=== PATIENT | male | born 1990 | race Two or more races ===

== ENCOUNTER 2020-05-26 09:23 | Emergency (ER) | payer SELFPAY ==
[~2020-05-26] VITALS: Ht 172.7 cm; Wt 106.0 kg
[2020-05-26] MEDS ORDERED: IV NORMAL SALINE 1000ML BAG 1,000 ML IV ONE (10:00)
[2020-05-26] MEDS ORDERED: ONDANSETRON PF 4 MG/2 ML VIAL. IVP ONE (10:00)
[2020-05-26] MEDS ORDERED: KETOROLAC 30 MG/ML VIAL. IVP ONE (10:00)
--- NOTE | 2020-05-26 10:03 | PHYS DOC ---
Past Medical History Past Medical History: No Pertinent History Past Surgical History: No Surgical History Smoking Status: Never Smoker Alcohol Use: Occasionally General Adult EDM: Chief Complaint: ABDOMINAL PAIN HPI: HPI: Patient is a 29 year old male who presented to ER for evaluation of 2-week history of right-sided abdominal pain off and on. The pain become more severe today so he came in for evaluation. Patient denies any diarrhea, no cough, no fever. Review of Systems: Review of Systems: Constitutional: Denies fever or chills. [] Eyes: Denies change in visual acuity. [] HENT: Denies nasal congestion or sore throat. [] Respiratory: Denies cough or shortness of breath. [] Cardiovascular: Denies chest pain or edema. [] GI: Right-sided abdominal pain, no nausea vomiting, no diarrhea : Denies dysuria. [] Musculoskeletal: Denies back pain or joint pain. [] Integument: Denies rash. [] Neurologic: Denies headache, focal weakness or sensory changes. [] Endocrine: Denies polyuria or polydipsia. [] Lymphatic: Denies swollen glands. [] Psychiatric: Denies depression or anxiety. [] Heart Score: Risk Factors: Risk Factors: DM, Current or recent (<one month) smoker, HTN, HLP, family history of CAD, obesity. Risk Scores: Score 0 - 3: 2.5% MACE over next 6 weeks - Discharge Home Score 4 - 6: 20.3% MACE over next 6 weeks - Admit for Clinical Observation Score 7 - 10: 72.7% MACE over next 6 weeks - Early Invasive Strategies Current Medications: Current Medications Medications (Trade) Dose Ordered Sig/Maribel Start Time Stop Time Status Last Admin Dose Admin Ketorolac Tromethamine (Toradol 30mg Vial) 30 mg 1X ONCE 05/26/20 10:00 05/26/20 10:01 UNV Ondansetron HCl (Zofran) 4 mg 1X ONCE 05/26/20 10:00 05/26/20 10:01 UNV Sodium Chloride 1,000 ml @ 1,000 mls/hr 1X ONCE 05/26/20 10:00 05/26/20 10:59 UNV Physical Exam: PE: Constitutional: Well developed, well nourished, no acute distress, non-toxic appearance. [] HENT: Normocephalic, atraumatic, bilateral external ears normal, oropharynx moist, no oral exudates, nose normal. [] Eyes: PERRLA, EOMI, conjunctiva normal, no discharge. [] Neck: Normal range of motion, no tenderness, supple, no stridor. [] Cardiovascular:Heart rate regular rhythm, no murmur [] Lungs & Thorax: Bilateral breath sounds clear to auscultation [] Abdomen: Bowel sounds normal, soft, There is tenderness to palpation in RUQ and RLQ, RIGHT FLANK, no masses, no pulsatile masses. [] Skin: Warm, dry, no erythema, no rash. [] Back: No tenderness, Right CVA tenderness. [] Extremities: No tenderness, no cyanosis, no clubbing, ROM intact, no edema. [] Neurologic: Alert and oriented X 3, normal motor function, normal sensory function, no focal deficits noted. [] Psychologic: Affect normal, judgement normal, mood normal. [] Current Patient Data: Labs: Laboratory Tests Test 05/26/20 09:50 05/26/20 10:15 05/26/20 10:40 Urine Color Yellow Urine Clarity Clear Urine pH 5.5 Urine Specific [place] 1.025 Urine Protein Negative mg/dL Urine Glucose (UA) Negative mg/dL Urine Ketones (Stick) Trace mg/dL Urine Blood Negative Urine Nitrite Negative Urine Bilirubin Negative Urine Urobilinogen Dipstick 0.2 mg/dL Urine Leukocyte Esterase Negative Urine RBC 0 /HPF Urine WBC 0 /HPF Urine Squamous Epithelial Cells Few /LPF Urine Bacteria 0 /HPF Urine Mucus Mod /LPF White Blood Count 7.6 x10^3/uL Red Blood Count 5.15 x10^6/uL Hemoglobin 15.6 g/dL Hematocrit 45.6 % Mean Corpuscular Volume 89 fL Mean Corpuscular Hemoglobin 30 pg Mean Corpuscular Hemoglobin Concent 34 g/dL Red Cell Distribution Width 13.2 % Platelet Count 152 x10^3/uL Neutrophils (%) (Auto) 60 % Lymphocytes (%) (Auto) 30 % Monocytes (%) (Auto) 7 % Eosinophils (%) (Auto) 2 % Basophils (%) (Auto) 1 % Neutrophils # (Auto) 4.6 x10^3/uL Lymphocytes # (Auto) 2.3 x10^3/uL Monocytes # (Auto) 0.6 x10^3/uL Eosinophils # (Auto) 0.2 x10^3/uL Basophils # (Auto) 0.1 x10^3/uL Sodium Level 140 mmol/L Potassium Level 4.2 mmol/L Chloride Level 109 mmol/L Carbon Dioxide Level 20 mmol/L Anion Gap 11 Blood Urea Nitrogen 12 mg/dL Creatinine 0.6 mg/dL Estimated GFR (Cockcroft-Gault) 157.1 BUN/Creatinine Ratio 20 Glucose Level 108 mg/dL Calcium Level 7.5 mg/dL Total Bilirubin 0.3 mg/dL Aspartate Amino Transf (AST/SGOT) 36 U/L Alanine Aminotransferase (ALT/SGPT) 58 U/L Alkaline Phosphatase 61 U/L Total Protein 6.7 g/dL Albumin 3.2 g/dL Albumin/Globulin Ratio 0.9 Lipase 111 U/L Current Medications Medications (Trade) Dose Ordered Sig/Maribel Route PRN Reason Start Time Stop Time Status Last Admin Dose Admin Sodium Chloride 1,000 ml @ 1,000 mls/hr 1X ONCE IV 05/26/20 10:00 05/26/20 10:59 DC 05/26/20 10:28 Ondansetron HCl (Zofran) 4 mg 1X ONCE IVP 05/26/20 10:00 05/26/20 10:23 DC 05/26/20 10:28 Ketorolac Tromethamine (Toradol 30mg Vial) 30 mg 1X ONCE IVP 05/26/20 10:00 05/26/20 10:23 DC 05/26/20 10:28 Iohexol (Omnipaque 300 Mg/ml) 75 ml 1X ONCE IV 05/26/20 11:45 05/26/20 11:46 DC 05/26/20 11:47 Info (CONTRAST GIVEN -- Rx MONITORING) 1 each PRN DAILY PRN MC SEE COMMENTS 05/26/20 11:45 05/28/20 11:44 Calcium Chloride (Calcium Chloride) 1,000 mg 1X ONCE IV 05/26/20 12:00 05/26/20 12:01 DC Vital Signs: Vital Signs Date Time Temp Pulse Resp B/P (MAP) Pulse Ox O2 Delivery O2 Flow Rate FiO2 05/26/20 09:38 98.6 93 18 151/85 (107) 97 Room Air 98.6 EKG: EKG: [] Radiology/Procedures: Radiology/Procedures: [][facility] [address] [place] [address] IMAGING REPORT Signed PATIENT: MADELINE BLANCHARD: [id number] : 1990 LOCATION: ER AGE: 29 SEX: M EXAM STATUS: REG ER ORD. PHYSICIAN: AYESHA MORENO DO REASON: right side abdominal pain x 15 days PROCEDURE: CT ABD PELV W/ IV CONTRST ONLY INDICATION: Reason: right side abdominal pain x 15 days / Spl. Instructions: IV OMNI 300 75 MLS / History: . COMPARISON: None. TECHNIQUE: Axial CT images obtained through the abdomen and pelvis with contrast. One or more of the following individualized dose reduction techniques were utilized for this examination: 1. Automated exposure control; 2. Adjustment of the mA and/or kV according to patient size; 3. Use of iterative reconstruction technique. FINDINGS: Dependent nodular opacity right lung base. Most commonly from atelectasis in a patient of this age unless they have a history of neoplasm. Abdominal aorta is not aneurysmal. Fat-containing inguinal hernias. Liver is low density. Nonspecific but can be seen with fatty infiltration. No peripancreatic fluid collection. Spleen is unremarkable. No hydronephrosis. Urinary bladder is partially distended. No periappendiceal inflammatory changes. Degenerative changes of the spine. Mild wedging of T7 and T8 vertebral body. IMPRESSION: * No evidence of appendicitis, hydronephrosis or bowel obstruction. * Low-density of the liver which can be seen with fatty infiltration. Electronically signed by: Stuart Merlos MD (05/26/2020 12:18 PM) [id number] DICTATED and SIGNED BY: STUART MERLOS MD DATE: 05/26/20 [id number] 0 Course & Med Decision Making: Course & Med Decision Making Pertinent Labs and Imaging studies reviewed. (See chart for details) Patient is a 19-year-old male who presented to ER for evaluation of right abdominal pain, CT scan of abdomen pelvis and his lab work did not show any acute problem. Patient was discharged home in stable condition. Dragon Disclaimer: Dragon Disclaimer: This electronic medical record was generated, in whole or in part, using a voice recognition dictation system. Departure Departure Impression: Primary Impression: Abdominal pain Disposition: 01 DC HOME SELF CARE/HOMELESS Condition: STABLE Referrals: NO PCP (PCP) follow up with your doctor next week Patient Instructions: Abdominal Pain Additional Instructions: [facility] [address] [place] [address] [facility] [address] [place] [address] [facility] C[facility] [address] [facility] [place] [address] [facility] [address] [place] [address] [facility] [address] [place] [address] [facility] [address] [place] [address] [facility] [address] [place] [address] [facility] [address] [place] [address] [facility] [address] [place] [address] [facility] [address] [place] [address] AYESHA MORENO DO May 26, 2020 10:03
[2020-05-26 10:23] LABS: BILIRUBIN,URINE NEGATIVE (NEG); CLARITY,URINE CLEAR; COLOR,URINE YELLOW; NITRITE,URINE NEGATIVE (NEG); PH,URINE 5.5 (<5.0-8.0); PROTEIN,URINE NEGATIVE (NEG-TRACE); UROBILINOGEN,URINE 0.2 mg/dL (0.2 mg/dL)
[2020-05-26 10:30] LABS: BASO # 0.1 x10^3/uL (0.0-0.2); BASO % 1 % (0-3); EOS # 0.2 x10^3/uL (0.0-0.7); EOS % 2 % (0-3); HEMATOCRIT 45.6 % (39.0-53.0); HEMOGLOBIN 15.6 g/dL (13.0-17.5); LYMPH # 2.3 x10^3/uL (1.0-4.8); LYMPH % 30 % (24-48); MEAN CORPUSCULAR HEMOGLOBIN 30 pg (25-35); MEAN CORPUSCULAR HGB CONC 34 g/dL (31-37); MEAN CORPUSCULAR VOLUME 89 fL (79-100); MONO # 0.6 x10^3/uL (0.0-1.1); MONO % 7 % (0-9); NEUT # 4.6 x10^3/uL (1.8-7.7); NEUT % 60 % (31-73); PLATELET COUNT 152 x10^3/uL (140-400); RED BLOOD COUNT 5.15 x10^6/uL (4.30-5.70); RED CELL DISTRIBUTION WIDTH 13.2 % (11.5-14.5); WHITE BLOOD COUNT 7.6 x10^3/uL (4.0-11.0)
[2020-05-26 10:58] LABS: CALCIUM 7.5 mg/dL (8.5-10.1); CREATININE 0.6 mg/dL (0.7-1.3); GFR 157.1; POTASSIUM 4.2 mmol/L (3.5-5.1)
[2020-05-26 11:04] LABS: ALBUMIN 3.2 g/dL (3.4-5.0); ALBUMIN/GLOBULIN RATIO 0.9 (1.0-1.7); TOTAL BILIRUBIN 0.3 mg/dL (0.2-1.0); TOTAL PROTEIN 6.7 g/dL (6.4-8.2)
[2020-05-26 11:13] LABS: BACTERIA,URINE 0 /HPF (0-FEW); RBC,URINE 0 /HPF (0-2); WBC,URINE 0 /HPF (0-4)
[2020-05-26] MEDS ORDERED: IOHEXOL 300 MG/ML 100ML VIAL. IV ONE (11:45)
[2020-05-26] MEDS ORDERED: CONTRAST GIVEN. MC PRN (11:45)
[2020-05-26] MEDS ORDERED: CALCIUM CHLORIDE 1,000 MG/10 ML DISP.SYRIN IV ONE (12:00)
--- NOTE | 2020-05-26 12:21 | RAD ---
INDICATION: Reason: right side abdominal pain x 15 days / Spl. Instructions: IV OMNI 300 75 MLS / His tory: . COMPARISON: None. TECHNIQUE: Axial CT images obtained through the abdomen and pelvis with contrast. One or more of the following individualized dose reduction techniques were utilized for this examinat ion: 1. Automated exposure control; 2. Adjustment of the mA and/or kV according to patient size; 3 . Use of iterative reconstruction technique. FINDINGS: Dependent nodular opacity right lung base. Most commonly from atelectasis in a patient of this age un less they have a history of neoplasm. Abdominal aorta is not aneurysmal. Fat-containing inguinal hernias. Liver is low density. Nonspecific but can be seen with fatty infiltration. No peripancreatic fluid collection. Spleen is unremarkable. No hydronephrosis. Urinary bladder is partially distended. No periappendiceal inflammatory changes. Degenerative changes of the spine. Mild wedging of T7 and T8 vertebral body. IMPRESSION: * No evidence of appendicitis, hydronephrosis or bowel obstruction. * Low-density of the liver which can be seen with fatty infiltration. Electronically signed by: Carlin Merlos MD (05/26/2020 12:18 PM) [id number]
[2020-05-26 14:00] VITALS: BP 110/61
== END 2020-05-26 14:10 | disposition home or self-care (01) ==
LOC: ER 09:23
DX: R10.11 Right upper quadrant pain (principal); R10.31 Right lower quadrant pain
CPT/HCPCS: 36415; 74177; 80053; 81001; 83690; 85025; 96361; 96374; 96375; 99285; J1885; J2405; J3490; J7030; Q9967